=== PATIENT | male | born 1965 | race Caucasian/White ===

== ENCOUNTER 2017-04-16 20:47 | Observation (INO) | payer SELFPAY ==
[2017-04-16 21:59] LABS: Troponin I Less than 0.010 ng/mL (< 0.028)
[2017-04-17] MEDS ORDERED: Ondansetron HCl/PF 4 MG/2 ML Vial IVP PRN (00:03)
[2017-04-17] MEDS ORDERED: Ondansetron ODT 4 MG TAB SL PRN (00:03)
[2017-04-17] MEDS ORDERED: Acetaminophen 325 MG TAB PO PRN ×2 (00:03→00:56)
[2017-04-17 00:42] VITALS: BMI 27.6
[2017-04-17 00:44] LABS: Troponin I Less than 0.010 ng/mL (< 0.028)
[2017-04-17] MEDS ORDERED: Senokot 8.6 MG TAB PO PRN (00:56)
[2017-04-17] MEDS ORDERED: Morphine 4 MG/ML VIAL SLOW IVP PRN (00:56)
[2017-04-17] MEDS ORDERED: Guaifenesin DM 100-10/5 ML UDCUP PO PRN (00:56)
[2017-04-17] MEDS ORDERED: Aspirin 325 MG TAB PO SCH ×3 (01:30→09:00)
[2017-04-17] MEDS: traMADol HCl 50 MG TAB PO PRN ×2 (03:42→10:30)
--- NOTE | 2017-04-17 03:49 | HP ---
REASON FOR ADMISSION: Chest pain. HISTORY OF PRESENT ILLNESS: The patient gives history of developing chest tightness around 4:40 p.m. yesterday. He has had this tightness radiate to both sides of his neck. He tried to sit down but did not get any relief. Ten minutes after sitting down, he tried to lie down and relax. None of this seemed to help. Finally, a family member suggested him to come to the emergency room. He went to [facility] from where he was transferred here. The patient has had an upper respiratory infection with sinusitis a week back and was given antibiotics and steroids. He has just finished this 3 days back. Currently, he has some cough which is mostly dry. No fever at home. No complaints of palpitations or PND. No prior cardiac workup. PAST MEDICAL/SURGICAL HISTORY: Hypertension, prior history of atrial flutter with ablation done in August 2016, appendectomy, lumbar spine surgery, psoriasis which is limited to left elbow, erectile dysfunction. CURRENT MEDICATIONS: The patient is on aspirin 81 mg p.o. daily, lisinopril 20 mg daily, Cialis p.r.n., Ultram 50 mg q. 6 hourly p.r.n. for low back pain, Zyrtec p.r.n. ALLERGIES: No known drug allergies. PERSONAL HISTORY: The patient smokes a half pack a day, chews tobacco, does not abuse alcohol or drugs. FAMILY HISTORY: Mother has had a history of [place] in her 60s. Father of a brain aneurysm in his 60s. REVIEW OF SYSTEMS: The following complete review of systems was negative, unless otherwise mentioned in the HPI or below: Constitutional: Weight loss or gain, ability to conduct usual activities. Skin: Rash, itching. Eyes: Double vision, pain. ENT/Mouth: Nose bleeding, neck stiffness, pain, tenderness. Cardiovascular: Palpitations, dyspnea on exertion, orthopnea. Respiratory: Shortness of breath, wheezing, cough, hemoptysis, fever, or night sweats. Gastrointestinal: Poor appetite, abdominal pain, heartburn, nausea, vomiting, constipation, or diarrhea. Genitourinary: Urgency, frequency, dysuria, nocturia. Musculoskeletal: Pain, swelling. Neurologic/Psychiatric: Anxiety, depression. Allergy/Immunologic: Skin rash, bleeding tendency. PHYSICAL EXAMINATION: GENERAL: The patient is a 51-year-old male who is currently not in any acute distress. VITAL SIGNS: Blood pressure 124/74, pulse 78 per minute, respiratory rate 18 per minute, temperature 98.2 degrees Fahrenheit, saturating 96% on room air. NECK: Supple, no elevated JVD. HEENT: Eyes: Extraocular muscles intact. Pupils are reacting to light. Oral cavity: Mucous membranes are moist. No exudates or congestion. CARDIOVASCULAR SYSTEM: S1 and S2 heard. Regular rhythm. RESPIRATORY SYSTEM: Air entry 1+ bilateral. No rales or wheezes. Has scattered rhonchi plus bilateral. ABDOMEN: Soft, bowel sounds heard. No tenderness, rigidity, or guarding. EXTREMITIES: No peripheral edema or calf tenderness. VASCULAR SYSTEM: Peripheral pulses 1+ bilateral. No ischemic ulcerations or gangrene. CENTRAL NERVOUS SYSTEM: No gross focal deficits seen. The patient is alert, awake, oriented x3. PSYCHIATRIC SYSTEM: The patient's mood is euthymic. No hallucinations or delusions. LABORATORY DATA: EKG done shows normal sinus rhythm at 77 beats per minute. Troponin x2 is negative. Electrolytes are stable. BUN 14, creatinine 0.8, glucose 85, albumin is 4.1, lipase is 62. Chest x-ray done shows no acute cardiopulmonary abnormalities. White count of 12, H&H 17 and 49, platelet count 188 with 53% neutrophils, MCV is 101. CLINICAL IMPRESSION AND PLAN: The patient will be under observation on telemetry for atypical chest pain to rule out acute coronary syndrome. We will continue him on aspirin, Pepcid, 10 mg of lisinopril along with DuoNebs q. 6 hourly. We will also obtain TSH levels in the morning. He will be scheduled for a nuclear stress test this morning. We will obtain lipid profile as well. He was counseled with regards to smoking cessation and tobacco chewing. We will continue to closely monitor him on telemetry. Please note I have seen and examined patient on 04/16/2017. SU
[2017-04-17 04:50] LABS: Anion Gap 11 mmol/L (10-20); BUN (Urea Nitrogen) 15 mg/dL (8.4-25.7); Calc. Creatinine Clearance 148 mL/min (70-130); Carbon Dioxide 25 mmol/L (22-29); Chloride 108 mmol/L (98-107); Cholesterol 140 mg/dl (< 200 Desired); Estimated GFR-MDRD Greater than 90; LDL Cholesterol, Calculated 76 mg/dL
[2017-04-17 05:20] LABS: #Basophils 0.1 thou/uL (0.0-0.2); #Eosinphils 0.3 thou/uL (0.0-0.7); #Lymphocytes 4.2 thou/uL (1.20-3.40); #Monocytes 0.8 thou/uL (0.11-0.59); #Neutrophils 6.2 thou/uL (1.40-6.50); %Basophils 0.8 % (0.0-1.0); %Eosinophils 2.6 % (0.0-10.0); %Monocytes 7.2 % (0.0-10.0); Hematocrit 44.6 % (42.0-52.0); Mean Platelet Volume 7.4 fL (7.4-10.4); Red Blood Cell (RBC) Count 4.24 mill/uL (4.70-6.10); White Blood Cell (WBC) Count 11.6 thou/uL (4.8-10.8)
[2017-04-17] MEDS ORDERED: Nitroglycerin 2% Ointment 1 INCH/1 GM Packet TOP SCH (06:00)
[2017-04-17] MEDS ORDERED: FLU VACC QS2017-18 36 mo. & older 0.5 ML SYRINGE IM ONE (09:00)
[2017-04-17] MEDS ORDERED: Lisinopril 10 MG TAB PO SCH (09:00)
[2017-04-17] MEDS ORDERED: Famotidine 20 MG TAB PO SCH (09:00)
[2017-04-17 11:20] VITALS: BP 134/88; TEMP 98.2
--- NOTE | 2017-04-17 11:32 | NM ---
MYOCARDIAL PERFUSION STUDY: Date: 04/17/17 HISTORY: Chest pain. RADIOPHARMACEUTICALS: 33 mCi technetium-99m sestamibi, IV at stress. 9.8 mCi technetium-99m sestamibi, IV at rest. MEDICATIONS: 0.4 mg of Lexiscan, IV. FINDINGS: There is normal uptake and distribution of radiotracer seen throughout the left ventricular myocardiu m. No reversible defect is seen between the stress and resting acquisitions. Quantitative analysis al so shows no significant reversible defect. Gated images show normal ventricular wall motion and wall thickening. The calculated left ventricular ejection fraction is 65%. IMPRESSION: 1. Normal myocardial perfusion study without evidence of a reversible defect seen to suggest ischemi a. 2. Normal LV function with normal LVEF of 65%. POS: PREETHI
--- NOTE | 2017-04-17 11:47 | PDOC.PN ---
- Subjective Encounter Start Date: 04/17/17 Encounter Start Time: 11:46 Mr. Vasquez was seen today in follow-up of chest pain. He says the pain in his chest has resolved. - Objective Resuscitation Status: Resuscitation Status FULL:Full Resuscitation MAR Reviewed: Yes Vital Signs & Weight: Vital Signs (12 hours) Temp Pulse Resp BP Pulse Ox 04/17/17 11:15 98.2 F 81 16 134/88 98 04/17/17 07:35 97.9 F 72 14 04/17/17 07:20 97.9 F 79 18 120/65 96 04/17/17 06:52 72 14 97 04/17/17 03:51 95 04/17/17 03:50 98.5 F 85 16 111/67 95 04/16/17 23:50 98.1 F 79 22 H Weight Weight 197 lb 14.4 oz I&O: 04/16/17 04/17/17 04/18/17 06:59 06:59 06:59 Intake Total 240 Output Total 0 Balance 240 Result Diagrams: 04/17/17 03:43 04/17/17 03:43 Phys Exam - Physical Examination HEENT: PERRLA Respiratory: no wheezing, no rales, no rhonchi, clear to auscultation bilateral Cardiovascular: RRR, no significant murmur Musculoskeletal: no edema Dx/Plan (1) Dysphagia Code(s): R13.10 - DYSPHAGIA, UNSPECIFIED Status: Acute (2) Chest pain Code(s): R07.9 - CHEST PAIN, UNSPECIFIED Status: Acute (3) Tobacco abuse Code(s): Z72.0 - TOBACCO USE Status: Chronic - Plan * Chest pain- likely non-cardiac. He gives some symptoms of difficulty swllowing food, and he may have some esophageal pathology * Recommend Outpatient GI work-up * Stable for discharge home.
[2017-04-17] MEDS ORDERED: Regadenoson 0.4 MG/5 ML SYRINGE ONE (14:39)
--- NOTE | 2017-04-17 16:49 | DIS ---
DATE OF ADMISSION: 04/16/2017 DATE OF DISCHARGE: 04/17/2017 PRIMARY CARE PHYSICIAN: Pasha Escobar MD DISCHARGE DISPOSITION: Home. PRIMARY DISCHARGE DIAGNOSES: 1. Chest pain, probable noncardiac. 2. Hypertension. 3. History of atrial fibrillation, status post ablation. 4. Tobacco abuse. DISCHARGE MEDICATIONS: There was no change in his medications and he is to continue tramadol 50 mg q .i.d. as needed, Cialis 5 mg daily, melatonin 20 mg at bedtime, lisinopril 10 mg daily, Zyrtec 10 mg daily, and aspirin 81 mg a day. PROCEDURES DONE DURING THE ADMISSION: The patient had a nuclear stress test which was negative for r eversible ischemia. Ejection fraction was estimated at 65%. CODE STATUS: FULL CODE. ALLERGIES: No known drug allergies. HOSPITAL COURSE: Mr. Vasquez is a pleasant 51-year-old gentleman who presented to the emergency room w ith complaints of pain in his chest. He says that it started in his mid chest region and radiated up to his neck and was fairly severe. He was placed in observation and underwent a nuclear stress test which was negative. The following day when I evaluated the patient, he further described the pain t o me and says that at times he does have some symptoms where the food seems to get stuck in the middl e of his throat. He says he can lift both of his arms and spread them out over his head and with marlene t then the food seems to go down further. He does not have any known symptoms of reflux and he is a smoker. I explained to him that it is possible that he could have some esophageal pathology causing his symptoms and it was recommended that he be referred to a java security engineer in the outpatient set ting. He may need an upper endoscopy to rule out esophageal stricture or even esophageal spasm, whic h may be causing his symptoms. The patient will be released home today and to have close followup wi aletha Escobar in the outpatient setting. Also to make note, the patient had a cardiac catheterizati on back in June. I was able to find the report and this was done by Dr. Carvajal and there was no e vidence of any flow limiting disease.
== END 2017-04-17 12:38 | disposition home or self-care (01) ==
LOC: ERS 20:47 → 2SW 23:19
PROVIDERS: ADMIT Internal Medicine; ATTEND Internal Medicine
DX: R07.89 Other chest pain (principal); I10 Essential (primary) hypertension; I48.91 Unspecified atrial fibrillation; L40.9 Psoriasis, unspecified; N52.9 Male erectile dysfunction, unspecified; F17.210 Nicotine dependence, cigarettes, uncomplicated; F17.220 Nicotine dependence, chewing tobacco, uncomplicated; R13.10 Dysphagia, unspecified; Z79.82 Long term (current) use of aspirin; Z79.899 Other long term (current) drug therapy; Z90.49 Acquired absence of other specified parts of digestive tract; Z98.890 Other specified postprocedural states
CPT/HCPCS: 36415; 78452; 80048; 80061; 84443; 84484; 85025; 93005; 93017; 94640; 94760; 99406; A9500; G0378; J2785; J7620

== ENCOUNTER 2017-07-24 11:37 | Observation (INO) | payer SELFPAY ==
[2017-07-24 13:16] LABS: Troponin I Less than 0.010 ng/mL (< 0.028)
[2017-07-24] MEDS ORDERED: Acetaminophen 325 MG TAB PO PRN (14:35)
[2017-07-24] MEDS ORDERED: Aspirin 325 MG TAB PO SCH (14:45)
[2017-07-24 14:49] VITALS: BP 134/82; TEMP 97.9; BMI 27.4
[2017-07-24 15:41] LABS: Cardiac Risk 5.2 (Less than 4.5)
[2017-07-24 15:44] LABS: Troponin I Less than 0.010 ng/mL (< 0.028)
[2017-07-24 17:58] LABS: Troponin I Less than 0.010 ng/mL (< 0.028)
--- NOTE | 2017-07-24 19:49 | CON ---
DATE OF CONSULTATION: 07/24/2017 REASON FOR CONSULTATION: Chest pain. HISTORY OF PRESENT ILLNESS: Mr. Vasquez is a pleasant 52-year-old white gentleman who comes to the [facility] for chest pain. He states he has had a stabbing pain in the left side of his chest started ear lier this morning, this had to come in for further evaluation. He has a significant history of chest pains in the past. I saw him about a year ago, at which point he had a stress test and ended up hav ing a heart catheterization that showed mild coronary artery disease. He had a repeat admission to [facility] later last year and had a normal stress of it. He comes in today for complaints of ches t and he states he has been a lot of stress due to his ex- and has been having to manage this and he feels this might be the bigger issue. Currently, he is chest pain free. PAST MEDICAL HISTORY: 1. Hypertension. 2. Atrial flutter, status post ablation in 08/2016. 3. Appendectomy. 4. Lumbar spine surgery. 5. Psoriasis, the left elbow. 6. Erectile dysfunction. OUTPATIENT MEDICATIONS: Include, 1. Aspirin 81 a day. 2. Lisinopril 10 mg a day. 3. Cialis p.r.n. 4. Ultram p.r.n. 5. Zyrtec p.r.n. ALLERGIES: No known drug allergies. PERSONAL HISTORY: He smokes half pack a day, chews tobacco. No alcohol or drugs. FAMILY HISTORY: Mother had an [place] in her 60s. Father of brain aneurysm in his 60s. REVIEW OF SYSTEMS: A 12-point review of systems was done and it was all negative unless stated in hi story of present illness. PHYSICAL EXAMINATION: VITAL SIGNS: Temperature 97.9, pulse 66, respiration rate 20, satting 97% on room air, blood pressur e 134/82. GENERAL: Awake, alert, and oriented x3, in no distress. HEENT: Normocephalic, atraumatic. NECK: Supple. LUNGS: Clear. CARDIOVASCULAR: S1, S2. No S3, S4. No murmurs or rubs. ABDOMEN: Soft with positive bowel sounds. EXTREMITIES: No edema. SKIN: Warm and dry. LABORATORY WORK: Reviewed. Troponin is negative x3. Triglycerides of 136, cholesterol 150, LDL of 94, HDL of 29. EKG was reviewed, normal sinus rhythm, no ischemic changes. Previous catheterization was reviewed. ASSESSMENT AND PLAN: Chest pain: Unlikely to be cardiac in nature. He has 3 negative troponins and he had a heart catheterization that showed no significant coronary artery disease just about a year ago. At this point in time, if he has a third negative troponin, he should be able to be discharged home with follow up in the office in 1 month for further risk factor modification. Thank you for letting us participate in the care of your patient. We will follow.
--- NOTE | 2017-07-24 20:26 | SS ---
PRIMARY CARE PHYSICIAN: Dr. Escobar. CHIEF COMPLAINT: Chest pain. HISTORY OF PRESENT ILLNESS: Mr. Vasquez is a pleasant 52-year-old gentleman that has a history of hype rtension as well as a history of atrial fibrillation or atrial flutter, status post ablation. He was in his usual state of health until today. He says that he was getting some routine blood work done, and he had just had his lab work done and he was walking out to his truck. When he started feeling some pressure in his chest, he said it felt like somebody was squeezing him really hard and the pain went up to his neck. He started getting dizzy and feeling weak. He says that this sensation lasted anywhere from 30-40 minutes. He got relief after he was in the emergency room and was given morphine IV as well as aspirin. He was evaluated in the emergency room and has been placed in observation. Currently, the patient is chest pain free and denies any dyspnea. He says generally he had been feel ing well since his last admission back in March, at which time he had a stress test, which was neg ative. It was also noted through review of his records that he also had a cardiac catheterization wi thin the last 12 months, back in 06/2016, which was negative for any flow-limiting disease. REVIEW OF SYSTEMS: Constitutional: There has been no fevers, chills, no night sweats, no weight los s. HEENT: No headaches, no dizziness, no visual changes, no sore throat, rhinorrhea, neck pain, no adenopathy. Pulmonary: No hemoptysis, no cough, no wheezing. Cardiovascular: As stated in the his tory of present illness. He also denies any PND or orthopnea. Gastrointestinal: No abdominal pain, no nausea, no vomiting, no change in bowels. Genitourinary: No urinary frequency, hematuria, no he sitancy. Neurologic: No focal weakness, numbness, no seizures. Psychiatric: No symptoms of anxiet y or depression. Skin And Integument: No skin changes. No rash. PAST MEDICAL HISTORY: Significant for atrial flutter, status post ablation as well as hypertension a nd tobacco abuse. PAST SURGICAL HISTORY: He has had lumbar spine surgery. ALLERGIES: No known drug allergies. SOCIAL HISTORY: He continues to smoke about a pack a day for 10 years. Denies any alcohol use. FAMILY HISTORY: Significant for hypertension. He told me, there was no history of coronary artery d isease in his family; however, an old record it said, his mother had an [place] in her 60s and father of a brain aneurysm in his 60s. CURRENT MEDICATIONS: Include lisinopril 10 mg daily, aspirin 81 mg daily, Cialis 5 mg daily, tramado l 50 mg t.i.d., Celexa 20 mg at bedtime, Benadryl 50 mg at bedtime, Flonase nasal spray twice a day, Benadryl 25 mg daily, and Proventil inhaler 2 puffs q.6 as needed. PHYSICAL EXAMINATION: GENERAL: He is alert and oriented. He appears to be in no acute distress. VITAL SIGNS: His blood pressure was 134/82, heart rate 66, respiratory rate of 20, temperature is 97 .9. HEENT: Pupils are equal, round, and reactive. Extraocular muscles are intact. His sclerae anicteri c. Throat, no erythema, no exudates. NECK: No adenopathy, no bruits. LUNGS: Clear. He did have an occasional expiratory wheeze, no rhonchi. CARDIOVASCULAR: He has a normal S1, S2. There is no S3 or S4. No murmurs, clicks, or rubs. ABDOMEN: Soft, it is nontender, nondistended. Positive for bowel sounds. No rebound, no guarding. EXTREMITIES: There is no edema. NEUROLOGICALLY: The exam is nonfocal. LABORATORY DATA: He has had 2 sets of troponin, which are negative. His cholesterol was 150, LDL 94 , HDL is 29. EKG was sinus rhythm with no acute ST wave changes. ASSESSMENT: Mr. Vasquez is a pleasant 52-year-old gentleman who presents with chest pain. It is noted that he has had a recent stress test back in March, which was negative and has had a cardiac cath eterization in 06/2016, which did not demonstrate any coronary artery disease. It is, therefore, hig hly unlikely that his pain is related to coronary artery disease. This was discussed in passing with Dr. Carvajal, who actually performed his cardiac catheterization and it is recommended that we get a f inal set of cardiac enzymes and then he can be discharged home. He can have close followup with his primary care physician, Dr. Escobar to discuss other alternative etiologies for chest pain such as GI possibilities and possible anxiety or stress.
[2017-07-25] MEDS ORDERED: FLU VACC QS2017-18 36 mo. & older 0.5 ML SYRINGE IM ONE (09:00)
--- NOTE | 2017-07-26 13:05 | EKG ---
Test Reason : REPEAT Blood Pressure : / mmHG Vent. Rate : 063 BPM Atrial Rate : 063 BPM P-R Int : 164 ms QRS Dur : 088 ms QT Int : 398 ms P-R-T Axes : 116 039 034 degrees QTc Int : 407 ms Normal sinus rhythm Normal ECG Confirmed by LUPE GIL, TAWNY ([id number]), movie editor DENEEN DUNNE ([id number]) on 07/26/2017 1:05:27 PM Referred By: Confirmed By:TAWNY ANDRADE MD
== END 2017-07-24 18:33 | disposition home or self-care (01) ==
LOC: ERS 11:37 → 2SW 12:48
PROVIDERS: ADMIT Internal Medicine; ATTEND Internal Medicine
DX: R07.89 Other chest pain (principal); I10 Essential (primary) hypertension; I48.92 Unspecified atrial flutter; L40.9 Psoriasis, unspecified; N52.9 Male erectile dysfunction, unspecified; F17.220 Nicotine dependence, chewing tobacco, uncomplicated; Z79.82 Long term (current) use of aspirin; Z79.899 Other long term (current) drug therapy; Z98.890 Other specified postprocedural states
CPT/HCPCS: 36415; 80061; 93005; 94760; 96361; 96372; G0378

== ENCOUNTER 2022-09-20 08:33 | Outpatient (CLI) | payer OTHER | END 2022-09-20 08:34 | disposition home or self-care (01) | LOC: RAD 08:33 | PROVIDERS: ATTEND Family Medicine | DX: Z02.71 Encounter for disability determination (principal); M47.816 Spondylosis without myelopathy or radiculopathy, lumbar region; M89.38 Hypertrophy of bone, other site | CPT/HCPCS: 72100 ==